=== PATIENT | male | born 1980 | race Caucasian/White ===

== ENCOUNTER 2017-10-16 10:39 | Emergency (ER) | payer SELFPAY ==
[2017-10-16] MEDS ORDERED: Lidocaine 1%* 5 ML VIAL INJ ONE (11:11)
--- NOTE | 2017-10-16 11:14 | ED ---
Laceration/Wound HPI - HPI Summary HPI Summary: Patient is a 37-year-old male who presents emergency department for a finger laceration that occurred at work prior to arrival. Patient states he was working on a pipe when a piece of metal cut his left middle digit of hand. Last tetanus immunization was just several weeks ago. He has no past medical history. Symptoms are mild in severity. Moving finger makes symptoms worse. Rest makes symptoms better. - History of Current Complaint Stated Complaint: FINGER INJURY Time Seen by Provider: 10/16/17 10:59 Hx Obtained From: Patient Pain Intensity: 9 - Allergy/Home Medications Allergies/Adverse Reactions: Allergies Allergy/AdvReac Type Severity Reaction Status Date / Time No Known Allergies Allergy Verified 10/16/17 10:57 Home Medications: Home Medications NK [No Home Medications Reported] 10/16/17 [History Confirmed 10/16/17] PMH/Surg Hx/FS Hx/Imm Hx Previously Healthy: Yes - Immunization History Date of Tetanus Vaccine: Two weeks ago per pt. Infectious Disease History: No Infectious Disease History: Denies: Traveled Outside the [place] in Last 30 Days - Social History Occupation: Employed Full-time Lives: With Family Alcohol Use: Occasionally Substance Use Type: Reports: None Smoking Status (MU): Unknown if Ever Smoked Review of Systems Positive: Other - finger laceration Negative: Weakness, Paresthesia, Numbness All Other Systems Reviewed And Are Negative: Yes Physical Exam Triage Information Reviewed: Yes Vital Signs On Initial Exam: Initial Vitals Temp Pulse Resp BP Pulse Ox 97.5 F 92 16 128/79 98 10/16/17 10:54 10/16/17 10:54 10/16/17 10:54 10/16/17 10:54 10/16/17 10:54 Vital Signs Reviewed: Yes Appearance: Positive: Well-Appearing - Patient sitting on bed in no acute distress. Coworker present. Skin: Positive: Warm, Dry Head/Face: Positive: Normal Head/Face Inspection Eyes: Positive: Normal Neck: Positive: Supple Musculoskeletal: Positive: Other - 1 cm, linear laceration noted to the dorsal aspect of the left third digit of hand just above the PIP joint. Full range of motion of digits and tendons are intact. Bony tenderness to the PIP joint. Neurological: Positive: Normal, CN Intact II-III Psychiatric: Positive: Affect/Mood Appropriate Procedures - Laceration/Wound Repair 1 Location: Other - left middle finger Description: Linear Anesthesia: Local, 1.0% Length, Depth and Shape: 1 cm linear Betadine Prep?: No - hibiclens Laceration/Wound Explored: clean Suture Type: Nylon Number of Sutures: 3 Layer Closure?: No Sterile Dressing Applied?: Yes Diagnostics - Vital Signs Vital Signs Temp Pulse Resp BP Pulse Ox 10/16/17 10:54 97.5 F 92 16 128/79 98 - Laboratory Lab Statement: Any lab studies that have been ordered have been reviewed, and results considered in the medical decision making process. Laceration Repair Course/Dx - Course Course Of Treatment: Patient presenting with simple finger laceration. No tendon involvement. X-ray obtained to evaluate for foreign body or fracture. X -rays negative for fracture but there is a questionable soft tissue foreign body versus subcutaneous air, reading per radiology. Wound was extensively irrigated and cleaned and no foreign bodies identified. Laceration repaired as noted above. Suture removal in 7-10 days. Advised patient to keep wound clean and dry. Tylenol or Motrin for pain as directed. To return to ER for redness, swelling or drainage from wound. Patient understands and agrees with plan. - Differential Dx Differental Diagnoses: Fracture, Laceration, Tendon Laceration - Clinical Impression Provider Diagnoses: Finger laceration Discharge - Sign-Out/Discharge Documenting (check all that apply): Discharge/Admit/Transfer - Discharge Plan Condition: Good Disposition: HOME Patient Education Materials: Care For Your Stitches (ED), Laceration (ED) Referrals: No Primary Care Phys,NOPCP [Primary Care Provider] - Additional Instructions: Suture removal in 7-10 days Keep wound clean and dry Can take tylenol or motrin for pain as directed Return to ER for redness, swelling or drainage from suture site - Billing Disposition and Condition Condition: GOOD Disposition: Home
--- NOTE | 2017-10-16 11:46 | RAD ---
Indication: Laceration medial aspect LEFT third finger at level of PIP joint. Comparison: No relevant prior exams available on the [facility] for comparison. Technique: 3 views LEFT third finger. REPORT AND IMPRESSION: Normal articular alignment. Negative for fracture, appreciable soft tissue swelling, conspicuous foreign body or subcutaneous emphysema.
[2017-10-16 12:20] VITALS: BP 145/73
== END 2017-10-16 12:16 | disposition home or self-care (01) ==
LOC: ED 10:39
DX: S61.213A Laceration without foreign body of left middle finger without damage to nail, initial encounter (principal); W26.8XXA Contact with other sharp object(s), not elsewhere classified, initial encounter; Y93.89 Activity, other specified; Y92.9 Unspecified place or not applicable; Y99.0 Civilian activity done for income or pay
CPT/HCPCS: 12001; 73140; 99281